=== PATIENT | female | born 1945 | race Caucasian/White ===

== ENCOUNTER 2016-11-24 06:17 | Day surgery (SDC) | payer OTHER ==
[2016-11-20 10:27] LABS: HEMOGLOBIN 13.5 g/dL (12.0-16.0)
[2016-11-20 10:38] LABS: CALCIUM, SERUM 9.3 MG/DL (8.5-10.4); CHLORIDE, SERUM 101 MMOL/L (96-112); CO2 (CARBON DIOXIDE) 26 MMOL/L (24-34); CREATININE 0.97 MG/DL (0.55-1.02); GFR AFRICAN AMERICAN 67 ML/MIN (>=60); GFR NON AFRICAN AMERICAN 58 ML/MIN (>=60); POTASSIUM, SERUM 4.9 MMOL/L (3.5-5.3); SODIUM, SERUM 135 MMOL/L (135-148)
[2016-11-20 10:39] LABS: BUN (BLOOD UREA NITROGEN) 14 MG/DL (6-23); GLUCOSE, SERUM 293 MG/DL (60-99)
--- NOTE | ~2016-11-24 | OP ---
Record Of Operation [facility] [address] [place]. [address] NAME: CHRIS GILL : 41 STATUS : REG [facility] [place] PAT#: [id number] AGE: 71 ADM/REG DATE : 11/24/16 MR#: [id number] REPORT SERV DATE: 11/24/16 DICTATED BY: HERMINIO PACHECO III DATE: 11/24/16 REPORT STATUS : Draft TRANSCRIBED BY: MODL DATE: 11/24/16 DATE OF PROCEDURE: 11/24/2016 PREOPERATIVE DIAGNOSIS: Bladder lesion. POSTOPERATIVE DIAGNOSES: 1. Bladder lesion. 2. Small right ureteral orifice. PROCEDURES: Cystoscopy, bladder biopsy with fulguration. SURGEON: Herminio Pacheco M.D. ANESTHESIA: General. SPECIMEN: Bladder biopsy. INDICATION: Ms. Gill is a 71-year-old white female with a history of bladder tumors. She was found to have an erythematous lesion on cystoscopy. Consent was obtained for bladder biopsy. DESCRIPTION OF PROCEDURE: After consent was obtained, the patient was identified and she was taken to the OR and put to sleep. She was positioned in the low lithotomy position and prepped and draped in the usual fashion. The 22-Syriac cystoscope was made ready and advanced into the bladder using the obturator. The bladder was then inspected. There was erythematous lesion next to the scar on the right part of the bladder. Further inspection showed that the right ureteral orifice appeared rather small. A cold cup biopsy was performed of this erythematous lesion. This was passed off as specimen. The area of the biopsy was then cauterized with the Bugbee. Hemostasis was present. The bladder was then drained. The scope removed. The patient was awakened and taken to recovery in stable condition. PH/MODL Herminio Pacheco III, M.D. / [id number] CC: Jennifer Fall III, RUTH
[~2016-11-24 06:17] MED LIST: ALTACE10 MG PO; AMARYL4 PO; ASA5GR PO; COMBIVENT RESPIM4 GM INH; ENDOCET1 TA1 PO; HARD NAILS OR; KLOR-CON M2020 MEQ PO; L40 PO; LANTUSCART SC; LEVOTHROID125 MCG PO; LIPITOR40 PO; METHOC750B PO; NORCO1 TAB PO; NORV5 PO; NOVOPEN SC; NTG150 SL; PR25 PO; PRILOSEC10 MG PO; ZANTAC150 MG PO
== END 2016-11-24 16:13 | disposition home or self-care (01) ==
LOC: SDC 06:17
PROVIDERS: Urology
PROC: 0TBB8ZX Excision of Bladder, Via Natural or Artificial Opening Endoscopic, Diagnostic (ICD-10-PCS; principal; 2016-11-24 07:45)
DX: N30.20 Other chronic cystitis without hematuria (principal); E11.9 Type 2 diabetes mellitus without complications; I10 Essential (primary) hypertension; I25.2 Old myocardial infarction; F41.9 Anxiety disorder, unspecified; Z88.0 Allergy status to penicillin; Z88.2 Allergy status to sulfonamides; E03.9 Hypothyroidism, unspecified; J44.9 Chronic obstructive pulmonary disease, unspecified; E78.5 Hyperlipidemia, unspecified; Z79.82 Long term (current) use of aspirin; Z79.899 Other long term (current) drug therapy; Z79.4 Long term (current) use of insulin
CPT/HCPCS: 80048; 82962; 85014; 85018; 88305; 93005; 94640; A9270-GY; C1769; J2250; J2405; J3010